=== PATIENT | female | born 1955 | race Two or more races ===

== ENCOUNTER 2017-02-21 10:29 | Emergency (ER) | payer BC ==
[2017-02-21 10:47] VITALS: BP 115/62
[2017-02-21] MEDS ORDERED: Lidocaine 1% MPF* 2 ML VIAL INJ ONE (10:54)
--- NOTE | 2017-02-21 10:54 | UC ---
Ear Complaint HPI - HPI Summary HPI Summary: 61 YEAR OLD FEMALE PRESENTS WITH COMPLAINS OF LEFT EAR SWELLING. - History of Current Complaint Chief Complaint: [employer] Stated Complaint: EAR PAIN Time Seen by Provider: 02/21/17 10:48 Hx Obtained From: Patient Onset/Duration: Sudden Onset Severity Initially: Moderate Severity Currently: Moderate Pain Scale Used: 0-10 Numeric - 5 - Allergies/Home Medications Allergies/Adverse Reactions: Allergies Allergy/AdvReac Type Severity Reaction Status Date / Time No Known Allergies Allergy Verified 02/21/17 10:42 PMH/Surg Hx/FS Hx/Imm Hx Previously Healthy: Yes - Surgical History Surgical History: Yes Surgery Procedure, Year, and Place: hysterectomy. left parotid mass removal - Social History Alcohol Use: None Substance Use Type: None Smoking Status (MU): Never Smoked Tobacco Review of Systems Constitutional: Negative Skin: Other - LEFT EAR SWELLING/ABSCESS Eyes: Negative ENT: Negative Respiratory: Negative Cardiovascular: Negative Gastrointestinal: Negative Genitourinary: Negative Motor: Negative Neurovascular: Negative Musculoskeletal: Negative Neurological: Negative Psychological: Negative Is Patient Immunocompromised?: Yes All Other Systems Reviewed And Are Negative: Yes Physical Exam Triage Information Reviewed: Yes Vital Signs: Initial Vital Signs Temp 36.4 C 02/21/17 10:42 Pulse 74 02/21/17 10:42 Resp 16 02/21/17 10:42 BP 115/62 02/21/17 10:42 Pulse Ox 98 02/21/17 10:42 Vital Signs Reviewed: Yes Eye Exam: Normal ENT Exam: Normal Dental Exam: Normal Neck exam: Normal Neck: Positive: 1 Respiratory Exam: Normal Cardiovascular Exam: Normal Abdominal Exam: Normal Musculoskeletal Exam: Normal Neurological Exam: Normal Psychological Exam: Normal Skin: Positive: Other - LEFT EAR SWELLING/ABSCESS Ear Complaint Course/Dx - Differential Dx/Diagnosis Provider Diagnoses: LEFT LOWER EAR ABSCESS Discharge - Discharge Plan Condition: Stable Disposition: HOME Prescriptions: Acetaminop/Codeine 30 MG TAB* [Tylenol/Codeine 30 MG TAB*] 1 tab PO Q8H PRN #9 tab MDD 3 PRN Reason: Pain DOXYcycline CAP(*) [DOXYcycline 100MG CAP(*)] 100 mg PO BID #20 cap Patient Education Materials: Abscess (ED) Referrals: Tamir Cedeno MD [Primary Care Provider] -
== END 2017-02-21 12:22 | disposition home or self-care (01) ==
LOC: UCEAST 10:29
DX: H66.42 Suppurative otitis media, unspecified, left ear (principal)
CPT/HCPCS: 10160; 87070; 87077; 87186; 87205; 87640; 87641; 99212; G0463

== ENCOUNTER 2017-02-23 15:17 | Emergency (ER) | payer BC ==
[2017-02-23 15:23] VITALS: BP 111/67
--- NOTE | 2017-02-23 15:38 | UC ---
HPI Wound/Suture Re-check - HPI Summary HPI Summary: 61 year old female present for wound check of left ear after drainage. - History Of Current Complaint Chief Complaint: [place] Stated Complaint: WOUND RECHECK Time Seen by Provider: 02/23/17 15:34 Hx Obtained From: Patient Onset/Duration: Lasting Days Severity: Mild Pain Scale Used: 0-10 Numeric - 1 - Allergies/Home Medications Allergies/Adverse Reactions: Allergies Allergy/AdvReac Type Severity Reaction Status Date / Time No Known Allergies Allergy Verified 02/23/17 15:24 PMH/Surg Hx/FS Hx/Imm Hx Previously Healthy: Yes - Surgical History Surgical History: Yes Surgery Procedure, Year, and Place: hysterectomy. left parotid mass removal - Social History Alcohol Use: None Substance Use Type: None Smoking Status (MU): Never Smoked Tobacco Review of Systems Constitutional: Negative Skin: Other - left ear wound check post drainage Eyes: Negative ENT: Negative Respiratory: Negative Cardiovascular: Negative Gastrointestinal: Negative Genitourinary: Negative Motor: Negative Neurovascular: Negative Musculoskeletal: Negative Neurological: Negative Psychological: Negative All Other Systems Reviewed And Are Negative: Yes Physical Exam Triage Information Reviewed: Yes Vital Signs: Initial Vital Signs Temp 36.2 C 02/23/17 15:21 Pulse 78 02/23/17 15:21 Resp 18 02/23/17 15:21 BP 111/67 02/23/17 15:21 Pulse Ox 97 02/23/17 15:21 Vital Signs Reviewed: Yes Eye Exam: Normal ENT Exam: Normal Dental Exam: Normal Neck exam: Normal Neck: Positive: 1 Respiratory Exam: Normal Cardiovascular Exam: Normal Abdominal Exam: Normal Musculoskeletal Exam: Normal Neurological Exam: Normal Psychological Exam: Normal Skin Exam: Normal Skin: Positive: Other - left ear wound check post drainage Course/Dx - Differential Dx - Laceration/Wound Provider Diagnoses: left ear wound check post drainage Discharge - Discharge Plan Condition: Stable Disposition: HOME Patient Education Materials: Abscess (ED) Referrals: Sheeba Harding [Medical Doctor] - Tamir Cedeno MD [Primary Care Provider] -
== END 2017-02-23 15:45 | disposition home or self-care (01) ==
LOC: UCEAST 15:17
DX: S01.302D Unspecified open wound of left ear, subsequent encounter (principal); X58.XXXD Exposure to other specified factors, subsequent encounter
CPT/HCPCS: 99212; G0463

== ENCOUNTER 2017-06-05 14:23 | Emergency (ER) | payer BC ==
--- OUTSIDE RECORDS SUMMARY | 2017-06-05 14:51 | XMS REPORT ---
:1955 External Reference #:[id number] Author Organization [facility] Address [address] [place] [address] Phone [phone] Care Team Providers Name Role Phone Tamir Cedeno MD Care Team Information Lean Engineer Unavailable Tamir Cedeno MD Primary Care Physician Unavailable Payers Type Date Identification Numbers Payment Provider Subscriber Commercial Effective: Policy Number: [id number] BC/BS Of RAJ Chang 2017 PayID: [id number] [address] [address] [place] [address] Problems Date Description Provider Status Onset: 12/30/2010 Hypothyroidism Tamir Cedeno M.D. Active Onset: 09/10/2015 Gastroesophageal reflux disease Tamir Cedeno M.D. Active Family History Date Family Member(s) Problem(s) Comments General father - adult onset diabetes mellitus Mother Colon Cancer Text Input 2 brothers, 2 sisters - healthy Social History Type Date Description Comments Cigarette Use Nonsmoker Smoking Patient is a former smoker Daily Caffeine Consumes on average 2 cups of coffee per day Allergies, Adverse Reactions, Alerts Date Description Reaction Status Severity Comments 12/12/2009 Bacitracin rash active Medications Medication Date Status Form Strength Qnty SIG Indications Ordering Provider Synthroid 12/31 Active Tablets 75mcg 90tab 1 by mouth Tamir Delgado s every day Katelin Cedeno Sulfamethoxazole 03/05 Hx Tablets 800-160mg 42tab 1 by mouth H60.12 Tamir Delgado /Trimethoprim s twice a day Daniela Cedeno M.D. 03/26 Omeprazole 02/09 Hx Capsules 40mg 60cap take one 789.06 DR bermudez capsule by Brooke, - mouth bid Afazucena-C 03/05 Meclizine HCL 10/11 Hx Tablets 12.5mg 30tab take 1-2 386.11 s tid prn for Brooke, - dizziness Afnp-C 10/21 Amoxicillin 06/09 Hx Tablets 875mg 20tab 1 po bid x 381.01 s 10 days AZUCENA Islas - 06/19 Premarin 06/03 Hx Cream 0.625mg/G 42.50 1 gm pv 788.33 M 0gm daily for a AZUCENA Islas - week then 10/11 once weekly Appy a small amount around the urethra with a fingertip Macrobid 06/03 Hx Capsules 100mg 14cap 1 po bid x 788.33 s 7 days AZUCENA Islas - 06/09 Pyridium 06/03 Hx Tablets 100mg 6tabs 1 po tid x 788.33 2 days AZUCENA Islas - 06/05 Nitrofurantoin 01/26 Hx Capsules 100mg 10cap 1 po bid x [place] Monohydrate s 5 days Beth, - Afnp-C 01/31 Norflex 06/14 Hx Tablets 100mg 30tab 1 po bid 723.1 s Allan, - CRUSHER LOADER OPERATOR 08/19 Physical Therapy 06/14 Hx evaluate 723.1 and treat Allan, - cervical [employer]HER LOADER OPERATOR 01/26 strain Amoxicillin 09/04 Hx Tablets 500mg 20tab 1 po bid x 386.30 s 10d Allan, - CRUSHER LOADER OPERATOR 06/14 Meclizine HCL 09/04 Hx Tablets 12.5mg 30tab 2 - 3 po 386.30 s qhs until Allan, - vertigo [employer]USHER LOADER OPERATOR 06/14 resolve Norflex 03/19 Hx Tablets 100mg 30tab 1 po bid 719.41 Diego Hughes /2009 Daniela Aguilar M.D. 12/30 Silvadene 12/12 Hx Cream 1% 46gra apply to 943.13 Tamir Delgado /2009 gaetano Cedeno, - area bid M.D. 03/19 Physical Therapy 07/31 Hx treatment Tamir A. and Wilian - evaluation M.D. 09/29 back pain Norflex 07/26 Hx Tablets 100mg 30tab 1 po bid 724.5 Diego J. s Daniela ButterfieldDLety 03/19 Relafen 07/26 Hx Tablets 500mg 30tab 1 po bid 724.5 Tamir A. s Daniela Cedeno M.D. 08/05 Progesterone 01/21 Hx Caps[facility] Synthroid 08/21 Hx Tabs 100mcg 30tab Take 1 Tamir A. s Tablet Wilian, - Orally Once M.D. 12/31 A Day Diflucan 10/30 Hx Tablets 150mg 1tabs 1 PO Times Palak 1 Day Beth - Afnp-C 10/31 Topamax 08/11 Hx Tablets 100mg 60tab 1 po bid Tamir A. s Daniela Cedeno.DLety 07/26 Norflex 04/21 Hx Tablets 100mg 30tab 1 po bid Tamir A. s Daniela CedenoDLety 05/21 Relafen 04/21 Hx Tablets 500mg 30tab 1 PO bid Tamir A. Daniela Taylor.DLety 05/01 Physical Therapy 04/21 Hx treatment Tamir A. and Wilian - evaluation M.D. 05/03 RT Shoulder Overuse Syndrome Norflex 04/21 Hx Tablets 100mg 30tab 1 po bid 719.41 Tamir A. /2004 s Daniela Cedeno M.DLety 05/01 Relafen 04/21 Hx Tablets 500mg 20tab 1 PO bid 719.41 Tamir A. /2004 s Daniela Cedeno.DLety 05/01 Physical Therapy 04/21 Hx RT shoulder 719.41 Tamir A. overuse Wilian, - syndrome M.D. 05/03 Synthroid 01/01 Hx 0 112mcg 30uni 1 po qd Tamir A. Daniela Esquivel M.D. 08/21 Levaquin 12/12 Hx Tablets 500mg 10tab 1 PO qd 917.0 Tamir A. s Daniela Cedeno M.D. 12/22 Imitrex 04/02 Hx 100mg 9unit 1 po prn Tamir A. s headache; Wilian, - may repeat M.DLety 08/11 in 2 hours /2005 if necessary Compazine 04/02 Hx 10mg 12uni 1 Tab Q 6 Tamir A. ts HRS For Wilian, - Nausea/Vomi M.DLety 08/11 ting Tylenol #3 12/11 Hx 60uni 1 or 2 q 6h Tamir A. ts prn pain Daniela Cedeno M.D. 12/21 Flexeril 03/20 Hx 10mg 30uni qd prn Nicki alireza Lemus, - [employer]USHER LOADER OPERATOR 12/11 Vicodin 03/20 Hx 5/500 20uni 1PO Q6H prn Nicki alireza Lemus, - CRUSHER LOADER OPERATOR 12/11 Doxycycline 09/08 Hx 100mg 20uni 1 PO bid Ewa alireza Kitchen - CRUSHER LOADER OPERATOR-C 12/28 Nexium 06/11 Hx 40mg 10uni 1 qd Tamir A. Daniela Esquivel M.D. 12/28 Synthroid 06/07 Hx 0.125mg 30uni 1 po qd Tamir A. Daniela Esquivel M.D. 01/01 Naprosyn 06/07 Hx 500mg 20uni 1 PO bid Tamir A. Daniela Esquivel M.D. 06/17 Physical Therapy 06/07 Hx Treatment Tamir A. And Daniela Cedeno Evaluation Katelin 12/28 Of Mid- Strain Immunizations CPT Code Status Date Vaccine Lot # [id number] Given 12/12/2004 Td Immunization, For Use In Individuals 7 Years Or Older [address] Given 03/13/2004 DO Not Use Split Influenza Virus Vaccine Vital Signs Date Vital Result Comment 05/15/2017 BP Systolic 98 mmHg BP Diastolic 60 mmHg Heart Rate 60 /min Body Temperature 97.1 F Respiratory Rate 16 /min Height 62 inches 5'2" Weight 152.00 lb BMI (Body Mass Index) 27.8 kg/m2 03/05/2017 BP Systolic 112 mmHg BP Diastolic 78 mmHg Heart Rate 80 /min Body Temperature 97.9 F Height 62 inches 5'2" Weight 150.00 lb BMI (Body Mass Index) 27.4 kg/m2 02/11/2016 BP Systolic 120 mmHg BP Diastolic 68 mmHg Heart Rate 60 /min Body Temperature 98.4 F Respiratory Rate 16 /min Height 62 inches 5'2" Weight 154.00 lb BMI (Body Mass Index) 28.2 kg/m2 11/16/2015 BP Systolic 152 mmHg BP Diastolic 94 mmHg Heart Rate 72 /min Body Temperature 97.3 F Respiratory Rate 16 /min Height 62 inches 5'2" Weight 158.50 lb BMI (Body Mass Index) 29.0 kg/m2 09/10/2015 BP Systolic 114 mmHg BP Diastolic 66 mmHg Heart Rate 80 /min Body Temperature 98.1 F Respiratory Rate 16 /min Height 62 inches 5'2" Weight 158.00 lb BMI (Body Mass Index) 28.9 kg/m2 02/09/2014 BP Systolic 118 mmHg BP Diastolic 72 mmHg Heart Rate 62 /min Body Temperature 97.5 F Respiratory Rate 16 /min Height 62 inches 5'2" Weight 148.00 lb BMI (Body Mass Index) 27.1 kg/m2 11/25/2013 BP Systolic 110 mmHg BP Diastolic 62 mmHg Heart Rate 60 /min Body Temperature 97.9 F Respiratory Rate 16 /min Height 62 inches 5'2" Weight 145.00 lb BMI (Body Mass Index) 26.5 kg/m2 10/11/2013 BP Systolic 104 mmHg BP Diastolic 68 mmHg Heart Rate 56 /min Body Temperature 98.2 F Respiratory Rate 16 /min Height 62 inches 5'2" Weight 146.00 lb BMI (Body Mass Index) 26.7 kg/m2 06/09/2013 BP Systolic 110 mmHg BP Diastolic 60 mmHg Heart Rate 68 /min Body Temperature 98.6 F Respiratory Rate 16 /min Height 62 inches 5'2" Weight 147.00 lb BMI (Body Mass Index) 26.9 kg/m2 06/03/2013 BP Systolic 122 mmHg BP Diastolic 82 mmHg Heart Rate 88 /min Body Temperature 98.7 F Respiratory Rate 16 /min Height 62 inches 5'2" Weight 147.00 lb BMI (Body Mass Index) 26.9 kg/m2 03/02/2013 BP Systolic 102 mmHg BP Diastolic 68 mmHg Heart Rate 64 /min Body Temperature 97.5 F Respiratory Rate 16 /min Height 62 inches 5'2" Weight 147.00 lb BMI (Body Mass Index) 26.9 kg/m2 01/26/2013 BP Systolic 98 mmHg BP Diastolic 70 mmHg Heart Rate 60 /min Body Temperature 98.0 F Respiratory Rate 16 /min Height 62 inches 5'2" Weight 146.00 lb BMI (Body Mass Index) 26.7 kg/m2 08/19/2012 BP Systolic 106 mmHg BP Diastolic 60 mmHg Heart Rate 72 /min Body Temperature 97.6 F Respiratory Rate 16 /min Height 62 inches 5'2" Weight 154.12 lb BMI (Body Mass Index) 28.2 kg/m2 07/14/2012 BP Systolic 128 mmHg BP Diastolic 80 mmHg Heart Rate 76 /min Body Temperature 97.1 F Respiratory Rate 12 /min Height 62 inches 5'2" Weight 153.00 lb BMI (Body Mass Index) 28.0 kg/m2 06/14/2012 BP Systolic 120 mmHg BP Diastolic 70 mmHg Heart Rate 72 /min Body Temperature 98.5 F Height 62 inches 5'2" Weight 153.00 lb BMI (Body Mass Index) 28.0 kg/m2 09/05/2011 BP Systolic 100 mmHg BP Diastolic 78 mmHg Heart Rate 62 /min Body Temperature 97.7 F Height 62 inches 5'2" Weight 149.00 lb BMI (Body Mass Index) 27.2 kg/m2 08/07/2011 BP Systolic 104 mmHg BP Diastolic 78 mmHg Heart Rate 66 /min Body Temperature 97.0 F Respiratory Rate 14 /min Height 62 inches 5'2" Weight 149.00 lb BMI (Body Mass Index) 27.2 kg/m2 Right Visual Acuity Distance 20/25 uncorrected Left Visual Acuity Distance 20/20 uncorrected 12/30/2010 BP Systolic 110 mmHg BP Diastolic 62 mmHg Heart Rate 76 /min Body Temperature 97.3 F Respiratory Rate 16 /min Height 62 inches 5'2" Weight 146.00 lb BMI (Body Mass Index) 26.7 kg/m2 03/19/2010 BP Systolic 120 mmHg BP Diastolic 70 mmHg Heart Rate 64 /min Height 62 inches 5'2" Weight 143.00 lb BMI (Body Mass Index) 26.2 kg/m2 12/12/2009 BP Systolic 120 mmHg BP Diastolic 76 mmHg Heart Rate 76 /min Body Temperature 97.0 F Respiratory Rate 16 /min Height 62 inches 5'2" Weight 142.00 lb BMI (Body Mass Index) 26.0 kg/m2 07/26/2009 BP Systolic 126 mmHg BP Diastolic 70 mmHg Heart Rate 80 /min Body Temperature 97.9 F Respiratory Rate 16 /min Height 62 inches 5'2" Weight 136.00 lb BMI (Body Mass Index) 24.9 kg/m2 05/11/2008 BP Systolic 112 mmHg BP Diastolic 66 mmHg Heart Rate 60 /min Body Temperature 98.9 F Height 62 inches 5'2"Measured 01/21/2007 BP Systolic 120 mmHg BP Diastolic 82 mmHg Heart Rate 68 /min Body Temperature 98.5 F Height 62 inches 5'2"Measured Weight 130.00 lb BMI (Body Mass Index) 23.8 kg/m2 08/17/2006 BP Systolic 102 mmHg BP Diastolic 74 mmHg Heart Rate 76 /min Height 62 inches 5'2"Measured Weight 134.00 lb BMI (Body Mass Index) 24.5 kg/m2 12/25/2005 BP Systolic 122 mmHg BP Diastolic 80 mmHg Heart Rate 72 /min Respiratory Rate 16 /min Height 62 inches 5'2"Measured Weight 133.00 lb BMI (Body Mass Index) 24.3 kg/m2 10/30/2005 BP Systolic 118 mmHg BP Diastolic 66 mmHg Heart Rate 66 /min Height 62 inches 5'2"Measured Weight 133.00 lb BMI (Body Mass Index) 24.3 kg/m2 08/11/2005 BP Systolic 120 mmHg BP Diastolic 70 mmHg Heart Rate 56 /min Body Temperature 99.2 F Height 62 inches 5'2"Measured Weight 136.00 lb BMI (Body Mass Index) 24.9 kg/m2 04/21/2005 BP Systolic 122 mmHg BP Diastolic 70 mmHg Heart Rate 68 /min Body Temperature 98.1 F Height 62 inches 5'2"Measured Weight 138.00 lb BMI (Body Mass Index) 25.2 kg/m2 12/24/2004 BP Systolic 118 mmHg BP Diastolic 70 mmHg Heart Rate 76 /min Height 62 inches 5'2"Measured Weight 140.00 lb BMI (Body Mass Index) 25.6 kg/m2 12/12/2004 BP Systolic 114 mmHg BP Diastolic 60 mmHg Heart Rate 60 /min Body Temperature 97.4 F Height 62 inches 5'2"Measured Weight 143.00 lb BMI (Body Mass Index) 26.2 kg/m2 2004 BP Systolic 96 mmHg BP Diastolic 62 mmHg Heart Rate 72 /min Body Temperature 97.5 F Respiratory Rate 18 /min Height 62 inches 5'2"Measured Weight 135.00 lb BMI (Body Mass Index) 24.7 kg/m2 04/02/2004 BP Systolic 96 mmHg BP Diastolic 70 mmHg Heart Rate 72 /min Height 62 inches 5'2"Measured Weight 142.00 lb BMI (Body Mass Index) 26.0 kg/m2 12/12/2003 BP Systolic 110 mmHg BP Diastolic 64 mmHg Heart Rate 72 /min Body Temperature 99.0 F RT Ear Height 62 inches 5'2"Measured Weight 140.00 lb BMI (Body Mass Index) 25.6 kg/m2 10/11/2003 BP Systolic 112 mmHg BP Diastolic 76 mmHg Heart Rate 76 /min Body Temperature 98.8 F Height 62 inches 5'2"Measured Weight 134.00 lb BMI (Body Mass Index) 24.5 kg/m2 04/12/2003 BP Systolic 112 mmHg BP Diastolic 66 mmHg Heart Rate 80 /min Height 62 inches 5'2"Measured Weight 140.00 lb BMI (Body Mass Index) 25.6 kg/m2 03/20/2003 BP Systolic 112 mmHg BP Diastolic 80 mmHg Height 62 inches 5'2"Measured Weight 138.00 lb BMI (Body Mass Index) 25.2 kg/m2 12/28/2002 BP Systolic 90 mmHg BP Diastolic 56 mmHg Heart Rate 60 /min Height 62 inches 5'2"Measured Weight 132.00 lb BMI (Body Mass Index) 24.1 kg/m2 11/30/2002 BP Systolic 106 mmHg BP Diastolic 60 mmHg Heart Rate 60 /min Body Temperature 98.1 F Height 62 inches 5'2" Weight 137.00 lb BMI (Body Mass Index) 25.1 kg/m2 06/07/2002 BP Systolic 102 mmHg BP Diastolic 58 mmHg Heart Rate 68 /min Body Temperature 97.6 F Height 62 inches 5'2" Weight 140.00 lb BMI (Body Mass Index) 25.6 kg/m2 Results Test Date Test Result H/L Range Note Laboratory test finding 02/21/2017 MRSA/S. aureus SEE RESULT BELOW 1, 2 Ssti PCR Wound Culture/Sensi SEE RESULT BELOW 1, 3 Laboratory test 02/21/2017 Wound Culture/Sensi SEE RESULT 4, 5 finding BELOW Laboratory test 09/10/2015 TSH 0.80 mIU/L 0.50-6.00 finding Lipid Profile 09/10/2015 Cholesterol 248 mg/dL High 120-200 Triglycerides 305 mg/dL High 30-200 HDL Cholesterol 51 mg/dL 30-85 LDL (Calculated) 136 CALC High 0-129 VLDL Cholesterol 61 mg/dL High 0-50 HDL Risk Factor 4.9 CALC High 0.0-4.4 Comprehensive Metabolic Prof 09/10/2015 Sodium 138 mEq/L 134-149 Potassium 3.8 mEq/L 3.6-5.5 Chloride 104 mEq/L 94-112 Carbon Dioxide 30 mEq/L 21-32 Glucose 146 mg/dL High 70-105 6 BUN 11 mg/dL 6-26 Creatinine 0.6 mg/dL 0.6-1.4 BUN/Creat Ratio 18.3 CALC 8.0-36.0 Calcium 9.5 mg/dL 8.6-10.2 Total Protein 7.7 g/dL 6.4-8.3 Albumin 4.6 g/dL 3.8-5.5 Globulin 3.1 g/dL 2.0-4.8 A/G Ratio 1.5 CALC 0.6-2.3 Alk. Phosphatase 90 U/L 30-110 Alt (SGPT) 23 U/L 7-35 Ast (Sgot) 21 U/L 5-34 Total Bilirubin 0.4 mg/dL 0.2-1.3 GFR Non- >60 ml/min/1.73m^ >=60 GFR >60 ml/min/1.73m^ >=60 Complete Blood Count 09/10/2015 WBC 6.7 x10^3/UL 3.6-9.6 RBC 4.93 x10^6/UL 3.90-5.70 HGB 15.6 g/dL 12.1-17.2 HCT 46 % 36-50 MCV 93.0 fL 82.2-97.4 MCH 31.7 pg 27.6-33.3 MCHC 34.2 g/dL 33.0-35.5 RDW 13.4 % 11.6-13.7 PLT 309 x10^3/UL 150-400 MPV 6.9 fL Low 7.4-10.4 Gran # 4.1 x10^3/UL 1.5-7.2 Lymph# 2.3 x10^3/UL 0.7-4.9 Sumner# 0.3 x10^3/UL 0.1-0.9 Gran % 60.4 % 42.2-75.2 Lymph % 35.1 % 20.5-51.1 Sumner% 4.5 % 1.7-9.3 Laboratory test 09/10/2015 LDL, Direct 146 mg/dL High 0-130 finding Laboratory test 09/10/2015 Hemoglobin A1c (Fma) 5.5 % 4.1-5.7 finding Surgical Pathology 02/24/2014 S RUN DATE: <SEE NOTE> Clotest 02/24/2014 Clotest (SEE NOTE) 8 Laboratory test 09/28/2013 T-4 Free 1.2 ng/dL 0.8-1.8 9 finding TSH (Thyrotropin) 0.400 uIU/ml 0.350-5.500 9 Laboratory test finding 06/03/2013 Urine Culture No growth. Ua - Micro (Fma) 06/03/2013 Appearance CLEAR Color YELLOW Glucose, Urine (Fma/CMC/CTX) NEG Bilirubin NEG Ketones TRACE SP Grav >=1.030 Blood MODERATE PH 5.5 Protein SSA:NEG Urobil 0.2 Nitrite NEG Leukocytes (Fma/CMC/Centrex) TRACE Hyaline 0-1 /Lpf Granular - /Lpf WBC (Fma,Centrex) 10-13 RBC 8-10 Mucus (Fma/CBC/Centrex) - /Lpf Epith MODERATE /Lpf Bacteria TRACE-1+ /Hpf Amorphous (Fma/CMC/Centrex) - /Lpf Crystals, Fluid (Fma/CMC/CTX) - Z#Comments - Comprehensive Metabolic Prof 03/02/2013 Albumin 4.6 g/dL 3.8-5.5 Alk. Phos. 109 U/L 30-110 Alt (SGPT) 22 U/L 7-35 Ast (Sgot) 25 U/L 5-34 BUN 17 mg/dL 6-26 Calcium 9.8 mg/dL 8.6-10.2 Chloride 102 mEq/L 94-112 Creatinine 0.7 mg/dL 0.6-1.4 Carbon Dioxide 25 mEq/L 21-32 Glucose 103 mg/dL 70-105 Sodium 139 mEq/L 134-149 Total Bilirubin 0.2 mg/dL 0.2-1.3 Total Protein 7.1 g/dL 6.3-8.1 Potassium 4.2 mEq/L 3.6-5.5 Globulin 2.6 g/dL 2.0-4.8 A/G Ratio 1.8 Calc 0.6-2.3 BUN/Creat Ratio 24.4 Calc 8.0-36.0 CBC Electronic ([facility]) 03/02/2013 WBC 6.2 3.6-9.6 RBC 4.91 3.90-5.70 Hemoglobin (Fma/CMC/CTX) 14.7 g/dL 12.1 - 17.2 Hematocrit (a/CMC/CTX) 44.0 % 36.1 - 50.3 Platelets 274 10^3/ul 150-400 Lymph% 38.7 20.5-51.1 Mixed% 5.0 Neutrophils % 56.3 Mean Corpuscular Vol 90 82.2-97.4 Mean Corpuscular Hemoglobin 29.9 27.6-33.3 Mean Corpuscular Hemo Concen 33.4 32.0-36.0 RDW 13.1 11.6-13.7 Mean Platelet Volume 6.6 6.5-11.0 Ua - Micro ([facility]) 01/26/2013 Appearance slightly cloudy Color yellow Glucose neg Bilirubin neg Ketones trace SP Grav >1.030 Blood small PH 5.5 Protein neg Urobil 1.0 Nitrite positive Leukocytes (a/CMC/Centrex) small Hyaline - /Lpf Granular - /Lpf WBC ([facility]rex) 30-40 RBC 2-3 Mucus small amt /Lpf Epith few /Lpf Bacteria 4+ /Hpf Amorphous - /Lpf Crystals, Fluid (a/CMC/CTX) - Z#Comments - Laboratory test finding 12/15/2012 TSH 0.52 mIU/L 0.50-6.00 Ua - Non Micro ([facility]) 07/14/2012 Appearance clear Color yellow Glucose - Bilirubin - Ketones - SP Grav 1.010 Blood - PH 6.0 Protein - Urobil 0.2 Nitrite - Leukocytes ([facility]/Centrex) - Comprehensive Metabolic Prof 06/16/2012 Albumin 4.5 g/dL 3.8-5.5 Alk. Phos. 110 U/L 30-110 Alt (SGPT) 22 U/L 7-35 Ast (Sgot) 24 U/L 5-34 BUN 21 mg/dL 6-26 Calcium 9.2 mg/dL 8.6-10.2 Chloride 107 mEq/L 94-112 Creatinine 0.7 mg/dL 0.6-1.4 Carbon Dioxide 24 mEq/L 21-32 Glucose 96 mg/dL 70-105 Sodium 147 mEq/L 134-149 Total Bilirubin 0.3 mg/dL 0.2-1.3 Total Protein 6.9 g/dL 6.3-8.1 Potassium 5.0 mEq/L 3.6-5.5 Globulin 2.4 g/dL 2.0-4.8 A/G Ratio 1.8 Calc 0.6-2.3 BUN/Creat Ratio 28.4 Calc 8.0-36.0 Lipid Profile 06/16/2012 Cholesterol 255 mg/dL High 120-200 HDL 56 mg/dL 30-85 Triglycerides 128 mg/dL 30-200 HDL Risk Factor 4.6 CALC High 0.0-4.4 LDL (Calculated) 173 CALC High 0-129 VLDL (Calculated) 26 mg/dL 0-50 Laboratory test finding 06/16/2012 TSH 1.81 mIU/L 0.50-6.00 Laboratory test finding 08/07/2011 TSH 1.60 mIU/L 0.50-6.00 Lipid Profile 08/07/2011 Cholesterol 239 mg/dL High 120-200 HDL 54 mg/dL 30-85 Triglycerides 150 mg/dL 30-200 HDL Risk Factor 4.5 CALC High 0.0-4.0 LDL (Calculated) 155 CALC High 0-129 VLDL (Calculated) 30 mg/dL 0-50 Comprehensive Metabolic Prof 08/07/2011 Albumin 4.6 g/dL 3.8-5.5 Alk. Phos. 90 U/L 30-110 Alt (SGPT) 24 U/L 7-35 Ast (Sgot) 23 U/L 5-34 BUN 14 mg/dL 6-26 Calcium 9.3 mg/dL 8.6-10.2 Chloride 102 mEq/L 94-112 Creatinine 0.6 mg/dL 0.6-1.4 Carbon Dioxide 27 mEq/L 21-32 Glucose 101 mg/dL 70-105 Sodium 140 mEq/L 134-149 Total Bilirubin 0.3 mg/dL 0.2-1.3 Total Protein 7.0 g/dL 6.3-8.1 Potassium 4.1 mEq/L 3.6-5.5 Globulin 2.4 g/dL 2.0-4.8 A/G Ratio 1.9 Calc 0.6-2.2 BUN/Creat Ratio 23.1 Calc 8.0-36.0 Ua - Non Micro (Fma) 08/07/2011 Appearance CLEAR Color YELLOW Glucose, Urine (Fma/CMC/CTX) NEG Bilirubin NEG Ketones NEG SP Grav >=1.030 Blood NEG PH 5.5 Protein NEG Urobil 0.2 Nitrite NEG Leukocytes (Fma/CMC/Centrex) NEG Laboratory test finding 03/18/2011 TSH 2.06 mIU/L 0.50-6.00 Laboratory test finding 12/30/2010 Sed Rate 5mm (Fma/CMC/Centrex) CBC Electronic (Fma) 12/30/2010 WBC 5.6 3.6-9.6 RBC 4.62 3.90-5.70 Hemoglobin (Fma/CMC/CTX) 14.0 g/dL 12.1 - 17.2 Hematocrit (Fma/CMC/CTX) 40.8 % 36.1 - 50.3 Platelets 287 10^3/ul 150-400 Lymph% 27.3 20.5-51.1 Mixed% 8.2 Neutrophils % 64.5 Mean Corpuscular Vol 88 82.2-97.4 Mean Corpuscular Hemoglobin 30.3 27.6-33.3 Mean Corpuscular Hemo Concen 34.3 32.0-36.0 RDW 11.3 Low 11.6-13.7 Mean Platelet Volume 7.3 6.5-11.0 Laboratory test finding 12/30/2010 TSH 0.22 mIU/L Low 0.50-6.00 10 Jasmyne Panel--LD (Ctx/cmc) 12/30/2010 Antinuclear Abs, Ifa Negative 11 Rheumatoid Arth Factor 6.4 IU/mL 0.0-13.9 Anti Dsdna Antibodies 1 IU/mL 0-9 12 Hla B27 Disease Assoc. HLA-B*27 Negativ <SEE NOTE> 13 Antiextractable Nuclear Ag 12/30/2010 [employer] SAL[employer]ERSON Antibodies <0.2 AI 0.0-0.9 Dimas Antibodies <0.2 AI 0.0-0.9 Sjogren's AB Anti Ssa/SSB 12/30/2010 Sjogren's Anti-SS-A <0.2 AI 0.0- 0.9 Sjogren's Anti-SS-B <0.2 AI 0.0-0.9 CBC Auto Diff 10/12/2010 White Blood Count 6.3 CUMM 4.8-10.8 Red Cell Count 4.65 CUMM 4.2-5.4 Hemoglobin 14.4 g/dL 12.0-16.0 Hematocrit 42 % 35-47 Mean Corpuscular Volume 90 um3 79-97 Mean Corpuscular Hemoglob 31 pg 27-31 Mean Corpuscular HGB Cone 34 g/dL 32-36 Redcell Distribution WDTH 13 % 10.5-15 Platelet Count 267 CUMM 150-450 Mean Platelet Volume 7.9 um3 7.4-10.4 Gran % 52.2 % 38-83 Lymph % 36.6 % 25-47 Mononuclear % 7.9 % 1-9 Eosinophil % 3.1 % 0-6 Basophil % 0.2 % 0-2 Abs Lymphs 2.3 1.0-4.8 Abs Mononuclear 0.5 0-0.8 Absolute Neutrophil Count 3.3 1.5-7.7 Abs Eosinophils 0.2 0-0.6 Abs Basophils 0 0-0.2 Urinalysis 10/12/2010 Ua Color YELLOW Yellow Appearance-Urine CLEAR Clear Specific [place]-Ur 1.025 1.010-1.030 Esterase-Urine NEGATIVE Negative Nitrite NEGATIVE Negative Veuaxfrkiuef-Gq-ETS NEGATIVE Negative Protein-Urine NEGATIVE Negative PH-Urine 6.5 5-9 Blood-Urine NEGATIVE Negative Ketones-Urine TRACE Negative Bilirubin-Ur NEGATIVE Negative Glucose-Urine NEGATIVE Negative Comp Metabolic Panel 10/12/2010 Sodium 139 mmol/L 135-145 Potassium 3.7 mmol/L 3.5-5.0 Chloride 106 mmol/L 101-111 Co2 (Carbon Dioxide) 27.0 mmol/L 22-32 Anion Gap 6.0 mmol/L 2-11 14 Glucose 145 mg/dL High 70-100 BUN 17 mg/dL 6-24 Creatinine 0.60 mg/dL 0.50-1.40 One Over Creatinine 1.60 BUN/Creatinine Ratio 28.3 High 8-20 Calcium 8.9 mg/dL 8.1-9.9 Total Protein 6.7 GM/DL 6.2-8.1 Albumin 4.2 GM/DL 3.6-5.4 Globulin 2.5 GM/DL 2-4 Albumin/Globulin Ratio 1.7 1-3 Bilirubin Total 0.9 mg/dL 0.4-1.5 15 Alkaline Phosphatase 75 U/L 30-110 Alt (SGPT) 34 U/L 14-54 Ast (Sgot) 28 U/L 12-42 eGFR Non- 103.8 > 60 eGFR 133.5 > 60 16 Laboratory test 10/12/2010 Lipase 28 U/L 22-51 finding Urine Culture 10/12/2010 Urine Culture NF1 17, 18 Sensitivi Sensitivi Laboratory test 03/26/2010 TSH 0.59 mIU/L 0.50-6.00 finding Ua - Non Micro (Fma) 07/26/2009 Appearance clear Color yellow Glucose - Bilirubin - Ketones - SP Grav 1.020 Blood - PH 6.0 Protein - Urobil 0.2 Nitrite - Leukocytes (Fma/CMC/Centrex) - Laboratory test finding 05/23/2009 TSH 0.68 mIU/L 0.50-6.00 Laboratory test finding 05/18/2008 TSH 0.63 mIU/L 0.50-6.00 Laboratory test finding 05/11/2008 Quickstrep NEGATIVE Negative Throat - Beta Strep Fma NEGATIVE @ 48HS Laboratory test finding 01/23/2007 TSH (Thyrotropin) 0.450 uIU/ml 0.350- 5.500 19 T-4 Free 1.2 ng/dL 0.8-1.8 19 Lipid Profile 01/23/2007 Cholesterol, Total 199 mg/dL 120-200 19, 20 HDL Cholesterol 58 mg/dL 40-60 19 LDL Cholesterol, Calc. 120 mg/dL <130 19, 21 Triglycerides 103 mg/dL 19, 22 LDL/HDL Cholesterol 2.1 19, 23 Chol/HDL Cholesterol 3.4 19, 24 Comprehensive Metabolic 01/23/2007 Glucose 87 mg/dL 70-100 19 BUN 14 mg/dL 4-18 19 Creatinine, Serum 0.9 mg/dL 0.5-1.2 19 Sodium 140 mmol/L 136-146 19 Potassium 4.2 mmol/L 3.5-5.3 19 Chloride 110 mmol/L 98-110 19 Carbon Dioxide 19 mmol/L Low 20-32 19 Albumin 4.3 g/dL 3.5-4.7 19 Protein, Total 6.9 g/dL 6.4-8.2 19 Calcium 8.8 mg/dL 8.4-10.4 19 Alkaline Phosphatase 77 U/L 10-118 19 Sgot (Ast) 18 U/L 3-40 19 SGPT (Alt) 13 U/L 7-50 19 Bilirubin, Total 0.50 mg/dL 0.30-1.20 19 Laboratory test finding 01/23/2007 GFR (Calculated) >60 19, 25 Laboratory test finding 10/12/2006 Estradiol 49.0 pg/mL 26 FSH 54.08 MIU/ML 27 Laboratory test finding 08/17/2006 Glucose 89 mg/dL 70-100 28 TSH (Thyrotropin) 0.110 uIU/ml Low 0.350-5.500 28 T-4 Free 1.6 ng/dL 0.8-1.8 28 CBC 08/17/2006 WBC 4.4 x103 4.3-10.9 28 RBC 4.89 x106 3.80-5.30 28 Hemoglobin 15.1 g/dL 11.8-15.8 28 Hematocrit 44.0 % 35.0-47.0 28 MCV 90.0 fl 82.0-98.0 28 MCH 31.0 pg 27.5-33.5 28 MCHC 34.4 g/dL 32.0-36.0 28 RDW 11.8 % 11.5-14.5 28 Platelet Count 286 x103 130-400 28 MPV 8.3 fl 6.5-10.5 28 Segmented Neutrophils 52.6 % 44.0-74.0 28 Lymphocytes 31.2 % 15.0-45.0 28 Monocytes 5.8 % 2.0-13.0 28 Eosinophils 9.9 % High 0.0-6.0 28 Basophils 0.5 % 0.0-2.0 28 Neutrophil Absolute 2.3 x103 1.4-7.0 28 Lymphocytes Absolute 1.4 x103 1.0-3.4 28 Monocyte Absolute 0.3 x103 0.2-1.0 28 Eosinophil Absolute 0.4 x103 0.0-0.5 28 Basophil Absolute 0.0 x103 0.0-0.2 28 Laboratory test 12/25/2005 TSH (a/CMC/Centrex) 0.52 uIU/ml 0.5-6.0 finding Laboratory test 09/30/2005 [facility] Labs CLOTEST See Image finding Report Laboratory test 12/24/2004 TSH (Thyrotropin) 0.140 uIU/ml Low 0.350-5.500 finding Laboratory test 04/02/2004 Thyrotropin (TSH) 0.560 uIU/ml 0.35 - 5.5 finding Lipid Profile 04/02/2004 Triglycerides 80 mg/dL 29 Cholesterol, Total 208 mg/dL High 120.0 - 200.0 30 HDL Cholesterol 56 mg/dL 40.0 - 60.0 LDL Cholesterol, Calc. 136 mg/dL <130 31 LDL/HDL Cholesterol 2.4 32 Chol/HDL Cholesterol 3.7 33 Laboratory test finding 10/07/2003 Body Fluid Cult Smear SEE DETAIL 34 Body Fluid Cult And Sens NO GROWTH DAY 4 Final Misc C&S SEE DETAIL Final 35 Laboratory test finding 09/25/2003 Anisocytosis SLIGHT CBC W/ Manual Diff ([facility]) 09/25/2003 WBC 13.0 CUMM High 4.8-10.8 RBC 4.59 CUMM 4.2-5.4 Hemoglobin (Fma/CMC/CTX) 14.7 g/dL 12.0-16.0 Hematocrit (Fma/CMC/CTX) 42 % 35-47 Mean Corpuscular Vol 93 UM3 79-97 Mean Corpuscular Hemaglobin 32 pg High 27-31 Mean Corpuscular Hemo Concen 35 g/dL 32-36 RDW 12 10.5-15 Platelets 261 CUMM 150-450 Mean Platelet Volume 7.3 Low 7.4-10.4 Poly From [facility] 76 38-83 Band 3 0-8 Lymph From [facility] 17 5-47 Monocytes 4 % 0-13 Eosinophils - 0-6 Atypical Lymph - 0-6 Morphology - Basophils - Basic Metabolic ([facility]) 09/25/2003 Sodium 137 mmol/L 135-145 Potassium 3.7 mmol/L 3.5-5.0 Chloride 102 mmol/L 101-111 Co2 26.0 mmol/L 22-32 Anion Gap 9.0 mmol/L 2-11 Glucose, Serum (Fma/CMC/CTX) 105 mg/dL 70-105 BUN (a/CMC/Centrex) 6 mg/dL 6-24 Creatinine (Fma/CMC/CTX) 0.5 mg/dL 0.5-1.4 BUN/Creatinin Ratio 12.0 8-20 Calcium (Fma/CMC/Centrex) 9.3 mg/dL 8.7-10.2 Comp Metabolic ([facility]) 12/28/2002 Glucose, Serum (a/CMC/CTX) 94 mg/dL 70- 118 BUN (a/CMC/Centrex) 12 mg/dL 7-26 Creatinine (a/CMC/CTX) 0.5 mg/dL Low 0.6-1.4 BUN/Creatinin Ratio 24.9 8.0-36 Sodium 140 134-149 Potassium 4.3 3.6-5.5 Chloride 103 mEq/L 94-112 Co2 24 21-32 Calcium (Fma/CMC/Centrex) 9.4 mg/dL 8.6-10.0 Total Protein 6.8 g/dL 6.3-8.1 Albumin ([facility]/CMCC/Centrex) 4.1 3.8-5.5 Globulin 2.7 2.0-4.8 A/G Ratio (a/CMC/Centrex) 1.5 0.6-2.2 Alkaline Phosphatase (F/C/CTX) 59 U/L 30-110 Alt (SGPT) 12 10-40 Ast (Sgot) (a/CMC/Centrex) 16 U/mL 5-34 Bilirubin, Total 0.6 mg/dL 0.2-1.3 Lipid Profile ([facility]) 12/28/2002 Cholesterol 201 mg/dL High 120-200 Triglyceride 91 mg/dL 30-200 HDL-Chol 49 30-85 LDL-Calculated ([facility]) 133 CALC High 0-129 VLDL 18 0-50 HDL Risk Factor ([facility]) 4.1 CALC Low 4.2-7.0 Laboratory test finding 12/28/2002 TSH 0.55 uIU/ml 0.5-6.0 Ua - Non Micro ([facility]) 12/28/2002 Appearance CLEAR YELLOW Glucose NEGATIVE Bilirubin NEGATIVE Ketones NEGATIVE SP Grav 1.015 Blood NEGATIVE PH 6.0 Protein NEGATIVE Urobil 1.0 Nitrite NEGATIVE Leukocytes NEGATIVE Ua - Micro ([facility]) 11/30/2002 Appearance CLEAR LT YELLOW Glucose NEGATIVE Bilirubin NEGATIVE Ketones NEGATIVE SP Grav <=1.005 Blood 1+ PH 6.0 Protein NEGATIVE Urobil 0.2 Nitrite NEGATIVE Leukocytes TRACE Hyaline - /Lpf Granular - /Lpf WBC'S 3-5 RBC'S 4-8 Mucus - /Lpf Epith FEW Bacteria 3- Amorphous - /Lpf Crystals - /Lpf Comments - Laboratory test finding 06/07/2002 TSH 1.1 uIU/ml 0.5-6.0 1 [id number] INSIDE OF ABSCESS OF EARLOBE 2 SEE RESULT BELOW Name: HARRISON CHANG Dalila : [address]: Aakash Mooney MD Acct: [id number] Unit: [id number] AGE: 61 Location: [facility] Re02/21/17 SEX: F Status: DEP ER SPEC: [id number] ADRIAN: 02/21/171123 [facility] DR: Aakash Mooney MD REQ: [id number] RECD: 02/21/173374 STATUS: RES OTHR DR: Tamir Cedeno MD _ SOURCE: WOUND SPDESC:ASPIRATE ORDERED: MRSA/SA SSTI, Culture Stain COMMENTS: [id number] INSIDE OF ABSCESS OF EARLOBE Verbal to [id number] ([facility]) by [id number] at 1057 on 02/22/17. Results read back accurately. Procedure Result Reported Site MRSA/S. aureus SSTI PCR Final 02/22/17- 1056 ML Organism 1 MRSA POSITIVE Organism 2 S.AUREUS POSITIVE Wound/Misc Gram Stain Final 02/21/17- 1631 ML No Neutrophils Observed No Organisms Seen Wound/Misc Culture Preliminary 02/22/17- 1100 ML Organism 1 STAPHYLOCOCCUS AUREUS Quantity 3+ * ML - MAIN LAB ([facility]) . END OF REPORT * ML=Testing performed at Main Lab DEPARTMENT OF PATHOLOGY, [address] [place] [address] Zac Burton M.D. Director [facility] # [id number] 3 SEE RESULT BELOW Name: HARRISON CHANG : [address]: Aakash Mooney MD Acct: [id number] Unit: [id number] AGE: 61 Location: [facility] Re02/21/17 SEX: F Status: DEP ER SPEC: [id number] ADRIAN: 02/21/[address] [facility] [address]: Aakash Mooney MD REQ: [id number] RECD: 02/21/17 STATUS: RES OTHR DR: Tamir Cedeno MD _ SOURCE: WOUND SPDESC:ASPIRATE ORDERED: MRSA/SA SSTI, Culture Stain COMMENTS: [id number] INSIDE OF ABSCESS OF EARLOBE Procedure Result Reported Site MRSA/S. aureus SSTI PCR PENDING Wound/Misc Gram Stain Final 02/21/17- 1631 ML No Neutrophils Observed No Organisms Seen Wound/Misc Culture Preliminary 02/22/17- 1046 ML Organism 1 STAPHYLOCOCCUS AUREUS Quantity 3+ * ML - MAIN LAB ([facility]) . END OF REPORT * ML=Testing performed at Main Lab DEPARTMENT OF PATHOLOGY, [address] [place] [address] Zac Burton M.D. Director [facility] # [id number] OUTER EAR LOBE 5 SEE RESULT BELOW Name: LOUANNHARRISON X : [address]: Aakash Mooney MD Acct: [id number] Unit: [id number] AGE: 61 Location: [facility] Re02/21/17 SEX: F Status: DEP ER SPEC: [id number] ADRIAN: 02/21/17-[address] [facility] [address]: Aakash Mooney MD REQ: [id number] RECD: 02/21/17143 STATUS: RES OTHR DR: Tamir Cedeno MD _ SOURCE: WOUND SPDESC:LEFT ORDERED: Culture Stain COMMENTS: [id number] OUTER EAR LOBE Procedure Result Reported Site Wound/Misc Gram Stain Final 02/21/17- 1631 ML No Neutrophils Observed No Organisms Seen Wound/Misc Culture Preliminary 02/22/17- 1047 ML Organism 1 STAPHYLOCOCCUS AUREUS Quantity 1+ Please refer to [id number] for sensitivity testing * ML - MAIN LAB ([facility]) . END OF REPORT * ML=Testing performed at Main Lab DEPARTMENT OF PATHOLOGY, [facility] [place], [place] [address] Zac Burton M.D. Director [facility] # [id number] 6 RESULTS VERIFIED BY REPEAT ANALYSIS 7 RUN DATE: 02/28/14 [facility] LAB LIVE PAGE 1 RUN TIME: 7807 [facility] [place] [place], [place] [address] Specimen Inquiry Name: HARRISON CHANG : [address]: Desmond Rooney MD Acct: [id number] Unit: [id number] AGE: 58 Location: [facility] Re02/24/14 SEX: F Status: REG REF SPEC: [id number] ADRIAN: 02/24/14- SUBM DR: Desmond Rooney MD REQ: [id number] RECD: 02/24/141244 STATUS: RAS DANIELS DR: Tamir Cedeno MD _ ORDERED: H [facility], LEVEL IV FINAL DIAGNOSIS Stomach, gastric cardia, biopsy: Gastric oxyntic gland mucosa with mild chronic active gastritis with associated Helicobacter pylori-like organisms. COMMENTS: An immunohistochemical stain for Helicobacter pylori-like organisms was performed with appropriate controls and demonstrates extensive Helicobacter pylori-like organisms supporting the above rendered diagnosis. CLINICAL HISTORY Dysphagia, epigastric pain. History of H. pylori POST-OPERATIVE DIAGNOSIS Esophagus - negative; gastroesophageal junction negative, gastric cardia - minimal superficial inflammation, biopsied x3, stomach otherwise normal - CLOtest antrum and fundus, pylorus and duodenum negative. Non-diagnostic EGGD, biopsy cardia, CLOtest GROSS DESCRIPTION The specimen is received in formalin labeled Harrison Chang, Biopsy Gastric Cardia, and consists of multiple portions of aguilar-white tissue that in aggregate measure 0.6 x 0.5 x 0.2 cm. Submitted entirely, one cassette. Signed (signature on file) Zac Burton MD 1616 END OF REPORT * ML=Testing performed at Main Lab DEPARTMENT OF PATHOLOGY, [place], [place] [address] Zac Burton M.D. Director [facility] # [id number] RUN DATE: 02/24/14 [facility] LAB LIVE PAGE 1 RUN TIME: 7491 [facility] [place], [place] [address] Specimen Inquiry Name: CHANGHARRISON X : [address]: Desmond Rooney MD Acct: [id number] Unit: [id number] AGE: 58 Location: [facility] Re02/24/14 SEX: F Status: REG REF SPEC: [id number] ADRIAN: 02/24/140952 [facility] DR: Desmond Rooney MD REQ: [id number] RECD: 02/24/14-1256 STATUS: COMP KADYHR DR: Tamir Cedeno MD _ SOURCE: GAS ANTRUM SPDESC: ORDERED: Clotest Procedure Result Verified Site Clotest Final 02/24/14- 1324 ML Clotest Positive END OF REPORT * ML=Testing performed at Main Lab DEPARTMENT OF PATHOLOGY, [address] [place] [address] Zac Burton M.D. Director [facility] # [id number] 9 1sst 10 RESULT YULIYA'D 11 Negative <1:80 Borderline 1:80 Positive >1:80 12 Negative <5 Equivocal 5 - 9 Positive >9 13 HLA-B*27 Negative . This test was performed using PCR (Polymerase Chain Reaction)/SSOP (Sequence Specific Oligonucleotide Probes) technique. SBT (Sequence Based Typing) and/or SSP (Sequence Specific Primers) may be used as supplemental methods when necessary. Please contact [facility] Customer Service at if you have any questions. . Director of [facility] Dr Chidi Jacobs, PhD 14 Anion gap measurement may be of limited value in the presence of any alkalosis, especially in a combined acid base disorder. . 15 A metabolite of Naproxen, O-desmethylnaproxen, has been shown to interfere with the Jendrassik-Tamra method for measuring total bilirubin. Samples from patients who have taken Naproxen have shown spurious elevation in total bilirubin levels. 16 Because ethnic data is not always readily available, this report includes an eGFR for both -Americans and non- Americans. The National Kidney Disease Education Program (NKDEP) does not endorse the use of the MDRD equation for patients that are not between the ages of 18 and 70, are , have extremes of body size, muscle mass, or nutritional status, or are non- or non-. According to the National Kidney Foundation, irrespective of diagnosis, the stage of the disease is based on the level of kidney function: Stage Description GFR(mL/min/1.73 m(2)) 1 Kidney damage with normal or decreased GFR 90 2 Kidney damage with mild decrease in GFR 60-89 3 Moderate decrease in GFR 30-59 4 Severe decrease in GFR 15-29 5 Kidney failure <15 (or dialysis) 17 SPECIMEN DESCRIPTION: URINE, CLEAN CATCH 18 SPECIMEN CONTAINS NORMAL URETHRAL OR PERINEAL MARCO AND DOES NOT SUGGEST URINARY TRACT INFECTION 19 FASTING; 2 SST 20 Cholesterol Risk Levels (NIH) Recommended: under 200 mg/dl Borderline : 200-239 mg/dl High Risk : Above 240 mg/dl 21 The National Cholesterol Education Program recommends the following ranges for LDL Cholesterol: Optimal under 100 mg/dl Near or above Optimal 100 - 129 mg/dl Borderline High 130 - 159 mg/dl High 160 - 189 mg/dl Very High above 190 mg/dl 22 Triglyceride Risk Levels: Normal : <150 mg/dl Borderline : 150-199 mg/dl High : 200-499 mg/dl Very High : >500 mg/dl 23 LDL/HDL Risk Ratio Levels MALE FEMALE 1/2 X Average 1.00 1.47 Average 3.55 3.22 2 X Average 6.25 5.03 3 X Average 7.99 6.14 24 CHOL/HDL Risk Ratio Levels MALE FEMALE 1/2 X Average 3.4 3.3 Average 5.0 4.4 2 X Average 9.5 7.0 3 X Average 24.0 11.0 25 mL/min/1.73m2 . Normal Function or Mild Renal Disease, if clinically at risk: >or=60 Moderately decreased: 30 - 59 Severely decreased: 15 - 29 Renal Failure: <15 . Please note that the MDRD equation requires an additional adjustment for -Americans (multiply the GFR result by 1.210). . Glomerular Filtration Rate (GFR) is estimated based on the MDRD equation, which assumes a steady state for creatinine ([facility] Int [facility] 139/2 137-149, 2003), as recommended by the National Kidney Disease Education Program in conjunction with the National Institutes of Health and the National Kidney Foundation. . Clinical conditions in which it may be necessary to measure GFR by using clearance methods include extremes of age and body size, severe malnutrition or obesity, diseases of skeletal muscle, paraplegia or quadriplegia, vegetarian diet, rapidly changing kidney function, and calculation of the dose of potentially toxic drugs that are excreted by the kidneys. 26 EXPECTED RESULTS (pg/ml) MALES 20-75 POSTMENOPAUSAL FEMALES 20-88 NON FEMALES Mid-Follicular Phase 24-114 Periovulatory 62-534 Mid Luteal Phase 80-273 27 NORMAL RANGE MALES 1 - 20 NORMALLY MENSTRUATING FEMALES - Follicular Phase 3 - 9 - Mid-Cycle Peak 4 - 23 - Luteal Phase 1 - 6 POSTMENOPAUSAL FEMALES 16 - 114 . 28 FASTING; 1 SST TUBE; 1 LAV TOP TUBE 29 Triglyceride Risk Levels: Normal : <150 mg/dl Borderline : 150-199 mg/dl High : 200-499 mg/dl Very High : >500 mg/dl . 30 Cholesterol Risk Levels (NIH) Recommended: under 200 mg/dl Borderline : 200-239 mg/dl High Risk : Above 240 mg/dl . 31 The National Cholesterol Education Program recommends the following ranges for LDL Cholesterol: Optimal under 100 mg/dl Near or above Optimal 100 - 129 mg/dl Borderline High 130 - 159 mg/dl High 160 - 189 mg/dl Very High above 190 mg/dl . 32 LDL/HDL Risk Ratio Levels MALE FEMALE 1/2 X Average 1.00 1.47 Average 3.55 3.22 2 X Average 6.25 5.03 3 X Average 7.99 6.14 . 33 CHOL/HDL Risk Ratio Levels MALE FEMALE 1/2 X Average 3.4 3.3 Average 5.0 4.4 2 X Average 9.5 7.0 3 X Average 24.0 11.0 . 34 SMEAR: MOD. POLYS MOD. NUCLEATED CELLS NO BACTERIA OBSERVED BY CYTOSPIN SMEAR 35 FEW JONNY PARAPSILOSIS Procedures Date CPT Code Description Status 05/06/2017 Mammogram Completed 09/13/2013 Colonoscopy Completed 08/14/2011 Mammogram Completed 08/07/2011 52152 Vision Test- screening test of visual acuity, Completed quantitative, bila 08/02/2009 Mammogram Completed 11/01/1996 1 Balance Forward Completed Encounters Type Date Location Provider CPT E/M Dx Office Visit 03/05/2017 1:00p Main Office Tamir Cedeno M.D. 42815 H60.12 Office Visit 02/11/2016 9:30a Main Office Nicki Lemus [facility] 80209 R10.30 Office Visit 11/16/2015 10:15a [facility] Office Gini Marshall [facility] 09436 M79.605 R03.0 E66.3 Office Visit 09/10/2015 1:20p [facility] Office Tamir Cedeno M.D. 86650 Z00.00 E03.9 Z12.39 Z12.11 Z13.220 K21.9 Z23 L98.9 E78.1 R73.09 Office Visit 02/09/2014 1:15p Main Office Liliana Erazo 45886 789.06 Office Visit 11/25/2013 1:30p [facility] Office Liliana Erazo 62650 719.44 Office Visit 10/11/2013 1:15p Main Office Maricruz Cox, Afnp-C 85035 386.11 Office Visit 06/09/2013 10:00a [facility] Office Shiela Islas, [place] [employer] 75432 381.01 Office Visit 06/03/2013 4:15p Main Office Shiela Islas, [place] [employer] 44508 788.33 Office Visit 03/02/2013 3:15p Main Office Shiela Islas, [place] [employer] 14772 789.04 787.3 V76.41 Office Visit 01/26/2013 5:00p Main Office Palak Campos, np-C 74674 465.9 599.0 Office Visit 08/19/2012 6:15p Main Office Gini Marshall, [facility] 61050 703.0 Office Visit 07/14/2012 9:20a [facility] Office Tamir Cedeno M.D. 69986 V70.0 244.9 272.4 V76.51 V76.10 723.1 Office Visit 06/14/2012 8:30p Main Office Nicki Lemus [facility] 72950 723.1 Office Visit 09/05/2011 9:15a Main Office Nicki Lemus [facility] 67591 386.30 Office Visit 08/07/2011 8:15a Main Office Tamir Cedeno M.D. 39548 V70.0 244.9 V77.91 V76.10 238.2 V72.0 Office Visit 12/30/2010 4:30p [facility] Office Tamir Cedeno M.D. 43428 244.9 719.89 V76.10 V76.51 Office Visit 03/19/2010 8:10a [facility] Office Diego Butterfield M.D. 84197 724.5 Office Visit 07/26/2009 6:30p Main Office Tamir Cedeno M.D. 39441 724.5 Office Visit 05/11/2008 4:00p [facility] Office Nicki Lemus [facility] 84906 462 Office Visit 01/21/2007 7:50p Main Office Tamir Cedeno M.D. 28465 244.9 627.8 346.10 Office Visit 08/17/2006 10:00a Main Office Anjana StallingsAZUCENA 02708 244.9 780.79 Office Visit 12/25/2005 4:20p Main Office Tamir Cedeno M.D. 15770 244.9 719.41 346.10 Office Visit 10/30/2005 4:15p Main Office Liliana Ortega 56968 616.10 Office Visit 08/11/2005 4:00p [facility] Office Tamir Cedeno M.D. 96441 789.03 Office Visit 04/21/2005 1:20p [facility] Office Tamir Cedeno M.D. 89864 719.41 Office Visit 12/24/2004 3:00p Main Office Tamir Cedeno M.D. 77818 244.9 Office Visit 12/12/2004 2:10p Main Office Tamir Cedeno M.D. 11254 917.0 V06.5 Office Visit 2004 3:10p Main Office Tamir Cedeno M.D. 43071 784.2 Office Visit 04/02/2004 10:50a Main Office Tamir Cedeno M.D. 97280 346.10 244.9 272.0 Office Visit 12/12/2003 10:10a Main Office Tamir Cedeno M.D. 67107 388.70 Office Visit 10/11/2003 4:45p [facility] Office Tamir Cedeno M.D. 78115 998.13 Office Visit 04/12/2003 4:00p Main Office ASHISH Lnaders 91308 789.04 Office Visit 03/20/2003 1:30p Main Office ASHISH Landers 11709 789.00 724.2 848.9 Office Visit 12/28/2002 10:20a [facility] Office Tamir Cedeno M.D. 53633 V70.0 701.9 388.8 216.9 Office Visit 11/30/2002 8:15p Main Office Liliana Ortega 12316 599.0 Office Visit 09/08/2002 7:30p Main Office RADHA Horn 26716 381.01 Office Visit 06/07/2002 9:40a Main Office Tamir Cedeno M.D. 47767 724.5 244.9 Plan of Care 05/15/2017 - Kristan Harrington, NPR10.30 Lower abdominal pain, unspecifiedComments:referral to GIM54.5 Low back painR14.0 Abdominal distension (gaseous)R19.5 Other fecal abnormalitiesAllComments:~B_~U_Medication Management~ b_~u_ Patient Understands medications she's taking? Yes No Are there Barriers to Adherence? Yes No Has the patient been asked about herbal supplements and therapies, and OTC meds? Yes No ~B_~U_Care Plan~b_~u _1. Patient has been queried about patient's goals/preferences and functional/ lifestyle goals at relevant visits. If relevant, describe: na2. Treatment goals as explained to the patient: above3. Are there barriers to meeting treatment goals? Yes No If Yes, please describe:4. Self-Management goals as described to the patient: Yes NoFollow up:As always, we strongly encourage a healthy diet and making physical activity a part of your every day life. If you have questions about how or where to start, please contact the office.
[2017-06-05 15:43] VITALS: BP 105/70
--- NOTE | 2017-06-05 17:45 | UC ---
Throat Pain/Nasal Jase HPI - HPI Summary HPI Summary: c/o sore throat on right side radiating to right neck, had contact with grandchild who had strept throat 5 days ago. Denies nasal d/c, fever, or cough. Also c/o pain at the base of right side of her tongue. - History of Current Complaint Chief Complaint: UCRespiratory Stated Complaint: SORE THROAT Time Seen by Provider: 06/05/17 17:26 Pain Intensity: 8 - Allergies/Home Medications Allergies/Adverse Reactions: Allergies Allergy/AdvReac Type Severity Reaction Status Date / Time No Known Allergies Allergy Verified 06/05/17 15:43 Home Medications: Home Medications Acetaminophen [Acetaminophen Extra Stren] 500 mg PO 06/05/17 [History] PMH/Surg Hx/FS Hx/Imm Hx Previously Healthy: Yes - Surgical History Surgical History: Yes Surgery Procedure, Year, and Place: hysterectomy. left parotid mass removal - Social History Alcohol Use: None Substance Use Type: None Smoking Status (MU): Never Smoked Tobacco Review of Systems ENT: Sore Throat, Other - pain in tongue All Other Systems Reviewed And Are Negative: Yes Physical Exam Triage Information Reviewed: Yes Appearance: Well-Appearing Vital Signs: Initial Vital Signs Temp 97.6 F 06/05/17 15:39 Pulse 69 06/05/17 15:39 Resp 18 06/05/17 15:39 BP 105/70 06/05/17 15:39 Pulse Ox 99 06/05/17 15:39 Vital Signs Reviewed: Yes Eye Exam: Normal ENT: Positive: Hearing grossly normal, Pharynx normal, TMs normal, Uvula midline , Other - small round well circumscribed dark lesion base of right side of tongue Dental Exam: Normal Neck exam: Normal Respiratory Exam: Normal Cardiovascular Exam: Normal Throat Pain/Nasal Course/Dx - Course Course Of Treatment: await for throat culture results. Saline gargles. follow up with PCP or dental for lingual lession small hematoma vs pigmented lesion - Differential Dx/Diagnosis Provider Diagnoses: Lingual lession. sore throat Discharge - Discharge Plan Condition: Stable Disposition: HOME Patient Education Materials: Pharyngitis (ED) Referrals: Tamir Cedeno MD [Primary Care Provider] -
== END 2017-06-05 18:15 | disposition home or self-care (01) ==
LOC: UCEAST 14:23
DX: K13.79 Other lesions of oral mucosa (principal); J02.9 Acute pharyngitis, unspecified
CPT/HCPCS: 87070; 87651; 99211; G0463